=== PATIENT | female | born 1975 | race Asian ===

== ENCOUNTER 2018-02-06 21:58 | Emergency (ER) | payer OTHER ==
[2018-02-07] MEDS: IBUPROFEN 600 MG TAB PO (02:52)
[2018-02-07] MEDS: DIPHTH/TET/ACEL PERTUSS (ADULT) 0.5 ML VIAL IM* (03:03)
== END 2018-02-07 03:17 | disposition home or self-care (01) ==
LOC: FTE 21:58
DX: S90.861A Insect bite (nonvenomous), right foot, initial encounter (principal); R40.2412 Glasgow coma scale score 13-15, at arrival to emergency department; W57.XXXA Bitten or stung by nonvenomous insect and other nonvenomous arthropods, initial encounter; Y92.9 Unspecified place or not applicable; Z23 Encounter for immunization
CPT/HCPCS: 90471; 90715; 99283-25